=== PATIENT | female | born 1985 | race African-American/Black ===

== ENCOUNTER 2019-05-09 13:12 | Emergency (ER) | payer MEDICAID ==
[2019-05-09 13:49] VITALS: BP 128/68
[2019-05-09] MEDS ORDERED: ACETAMINOPHEN 500MG TABLET PO ONE (14:30)
[2019-05-09] MEDS ORDERED: DEXAMETHASONE 4MG TABLET PO ONE (14:30)
[2019-05-09] MEDS ORDERED: IPRATROPIUM/ALBUTEROL 0.5-3(2.5)MG/3ML NEB HHN ONE ×2 (14:30→16:00)
== END 2019-05-09 16:34 | disposition home or self-care (01) ==
LOC: ER 13:12
DX: J45.901 Unspecified asthma with (acute) exacerbation (principal); R50.9 Fever, unspecified; R05 Cough
CPT/HCPCS: 71045; 87804; 94640; 99284; J7610; J8540

== ENCOUNTER 2019-06-01 03:12 | Emergency (ER) | payer MEDICAID, MEDICARE ==
[~2019-06-01] VITALS: Ht 165.1 cm; Wt 68.0 kg
[2019-06-01] MEDS ORDERED: ONDANSETRON HCL 4MG/2ML INJ IV STA (03:45)
[2019-06-01] MEDS ORDERED: SODIUM CHLORIDE 0.9% 1,000 ML IV ONE (03:45)
[2019-06-01 04:18] LABS: BASOPHILS % 0.3 % (0.0-2.0); EOSINOPHILS % 0.2 % (0.0-5.0); HEMATOCRIT. 37.4 % (36.0-48.0); HEMOGLOBIN. 12.5 g/dL (12.0-16.0); LYMPHOCYTES % 16.9 % (20.0-50.0); MEAN CORPUSCULAR HEMOGLOBIN 30.2 pg (28.0-32.0); MEAN CORPUSCULAR VOLUME 90.7 fL (81.0-99.0); MEAN PLATELET VOLUME 8.8 fl (7.4-10.4); MONOCYTES % 5.9 % (2.0-8.0); NEUTROPHILS % 76.7 % (40.0-76.0); PLATELET 317 x1000/uL (130-400); RED BLOOD CELL COUNT 4.13 mill/uL (4.2-5.4); RED CELL DISTRIBUTION WIDTH 15.7 % (11.6-14.6)
[2019-06-01 04:20] LABS: CHLORIDE 109 mEq/L (98-107)
[2019-06-01 04:26] LABS: ETHANOL BLOOD 175 mg/dL
[2019-06-01 04:28] LABS: HCG SCREEN NEGATIVE
[2019-06-01] MEDS ORDERED: POTASSIUM CHLORIDE 20MEQ TABLET SR PO ONE (04:45)
[2019-06-01 04:53] LABS: CLARITY URINE CLEAR (CLEAR); COLOR URINE YELLOW (YELLOW); KETONES URINE NEGATIVE (NEGATIVE); LEUKOCYTE ESTERASE URINE TRACE (NEGATIVE); NITRITE URINE NEGATIVE (NEGATIVE); OCCULT BLOOD URINE NEGATIVE (NEGATIVE); PH URINE 5.5 (4.5-8.0); PROTEIN URINE NEGATIVE (NEGATIVE); SPECIFIC GRAVITY URINE 1.009 (1.005-1.030); UROBILINOGEN URINE 0.2 E.U./dL (0.2-1.0)
[2019-06-01 05:35] VITALS: BP 151/83
[2019-06-01 05:41] LABS: *AMPHETAMINES SCREEN URINE NEGATIVE (NEGATIVE); *BARBITURATES SCREEN URINE NEGATIVE (NEGATIVE); *BENZODIAZEPINES SCREEN URINE NEGATIVE (NEGATIVE); *COCAINE SCREEN URINE NEGATIVE (NEGATIVE); METHADONE URINE SCREEN NEGATIVE (NEGATIVE); OPIATES URINE SCREEN NEGATIVE (NEGATIVE)
[2019-06-01 05:42] LABS: CANNABINOID URINE SCREEN NEGATIVE (NEGATIVE); PHENCYCLIDINE URINE SCREEN NEGATIVE (NEGATIVE)
== END 2019-06-01 07:02 | disposition home or self-care (01) ==
LOC: ER 03:12
DX: F10.129 Alcohol abuse with intoxication, unspecified (principal); Y90.6 Blood alcohol level of 120-199 mg/100 ml
CPT/HCPCS: 36415; 71045; 80053; 80305; 80320; 80329; 81003; 83690; 84703; 85025; 96374; 99284; J2405; J7030; G0480

== ENCOUNTER 2019-11-19 14:04 | Emergency (ER) | payer MEDICARE, MEDICAID ==
[~2019-11-19] VITALS: Ht 167.6 cm; Wt 94.0 kg
[2019-11-19] MEDS ORDERED: ALBUTEROL 6.7GM HFA INHALER ORI ONE (14:30)
[2019-11-19] MEDS ORDERED: PREDNISONE 20MG TABLET PO ONE (15:00)
[2019-11-19 16:33] VITALS: BP 142/93
== END 2019-11-19 16:15 | disposition home or self-care (01) ==
LOC: ER 14:04
DX: U07.1 COVID-19 (principal); J45.901 Unspecified asthma with (acute) exacerbation
CPT/HCPCS: 71045; 81025; 93005; 94640; 99283; J7512

== ENCOUNTER 2020-06-24 13:44 | Emergency (ER) | payer MEDICARE, MEDICAID ==
[~2020-06-24] VITALS: Ht 170.2 cm; Wt 97.0 kg
[2020-06-24] MEDS ORDERED: ALBUTEROL (0.083%) 2.5MG/3ML NEB HHN STA (14:26)
[2020-06-24] MEDS ORDERED: IPRATROPIUM BROMIDE (0.02%) 0.5MG/2.5ML NEB HHN STA (14:26)
[2020-06-24] MEDS ORDERED: POLY10DR RIGHTEYE (14:27)
[2020-06-24] MEDS ORDERED: ALBU2.5V13 NEB (14:28)
[2020-06-24] MEDS ORDERED: ALBU6.7H11 INH (14:29)
[2020-06-24] MEDS ORDERED: DEXAMETHASONE 2MG TABLET PO ONE (14:30)
[2020-06-24 15:40] VITALS: BP 112/60
== END 2020-06-24 15:48 | disposition home or self-care (01) ==
LOC: ER 14:16
DX: J45.901 Unspecified asthma with (acute) exacerbation (principal); H10.31 Unspecified acute conjunctivitis, right eye; Z79.899 Other long term (current) drug therapy
CPT/HCPCS: 94640; 99283; J8540

== ENCOUNTER 2020-08-19 12:43 | Emergency (ER) | payer MEDICARE, MEDICAID ==
[~2020-08-19] VITALS: Ht 167.6 cm; Wt 91.0 kg
[~2020-08-19 12:43] MED LIST: ALBU2.5V13 NEB; ALBU6.7H11 INH; POLY10DR RIGHTEYE
[2020-08-19] MEDS ORDERED: KETOROLAC 60MG/2ML VIAL IM ONE (13:15)
[2020-08-19] MEDS ORDERED: IBUPROFEN 600MG TABLET PO ONE (13:45)
[2020-08-19] MEDS ORDERED: NAPR-681 MT (13:57)
[2020-08-19 14:33] VITALS: BP 133/84
== END 2020-08-19 14:44 | disposition home or self-care (01) ==
LOC: ER 12:43
DX: S93.402A Sprain of unspecified ligament of left ankle, initial encounter (principal); J45.909 Unspecified asthma, uncomplicated; Z79.899 Other long term (current) drug therapy; W18.39XA Other fall on same level, initial encounter; Y93.61 Activity, american tackle football; Y92.89 Other specified places as the place of occurrence of the external cause; Y99.8 Other external cause status
CPT/HCPCS: 29515; 73610; 73630; 81025; 99284; J1885

== ENCOUNTER 2021-01-01 13:20 | Inpatient (IN) | payer OTHER ==
[~2021-01-01] VITALS: Ht 167.6 cm; Wt 101.2 kg
[~2021-01-01 13:20] MED LIST changes: -ALBU6.7H11 INH; +ALBU6.7H15 INH; +NAPR-681 MT
[2021-01-01 18:57] LABS: BASOPHILS % 0.2 % (0.0-2.0); CHLORIDE 109 mEq/L (98-107); EOSINOPHILS % 0.7 % (0.0-5.0); HEMATOCRIT. 37.5 % (36.0-48.0); HEMOGLOBIN. 12.9 g/dL (12.0-16.0); LYMPHOCYTES % 26.7 % (20.0-50.0); MEAN CORPUSCULAR HEMOGLOBIN 31.6 pg (28.0-32.0); MEAN CORPUSCULAR VOLUME 91.9 fL (81.0-99.0); MEAN PLATELET VOLUME 8.4 fl (7.4-10.4); MONOCYTES % 5.8 % (2.0-8.0); NEUTROPHILS % 66.6 % (40.0-76.0); PLATELET 350 x1000/uL (130-400); RED BLOOD CELL COUNT 4.08 mill/uL (4.2-5.4); RED CELL DISTRIBUTION WIDTH 13.3 % (11.6-14.6)
[2021-01-01] MEDS ORDERED: CLINDAMYCIN 300 MG in DEXTROSE 5% WATER 50 ML IV ONE (21:15)
[2021-01-02] MEDS: ACETAMINOPHEN WITH CODEINE 300/30MG TABLET PO PRN ×2 (00:29→10:17)
[2021-01-02 09:00] VITALS: BP 120/71
[2021-01-02] MEDS ORDERED: ACETAMINOPHEN 325MG TABLET PO PRN (09:15)
[2021-01-02] MEDS ORDERED: DIPHENHYDRAMINE 50MG/ML VIAL IV PRN (09:15)
[2021-01-02] MEDS ORDERED: ONDANSETRON HCL 4MG/2ML INJ IV PRN ×2 (09:15→20:30)
[2021-01-02] MEDS ORDERED: MORPHINE SULFATE 2 MG/ML CPJ (NOT FOR IM USE) IV PRN (09:15)
[2021-01-02] MEDS ORDERED: CLONIDINE 0.1MG TABLET PO PRN (09:15)
[2021-01-02 10:30] VITALS: BP 120/71
[2021-01-02] MEDS ORDERED: MOME13HF INH (10:41)
[2021-01-02] MEDS ORDERED: MONT4GRA2 MT (10:41)
[2021-01-02] MEDS ORDERED: POTASSIUM CHLORIDE 20MEQ/PACKET PO SCH (10:45)
[2021-01-02 12:00] VITALS: BP 121/90
[2021-01-02] MEDS: CLINDAMYCIN 600MG PREMIX 50 ML IV SCH ×2 (15:41→17:49)
[2021-01-02 16:00] VITALS: BP 114/78
[2021-01-02 17:14] LABS: PARTIAL THROMBOPLASTIN TIME 25.1 sec (23.4-31.0); PROTHROMBIN TIME 10.3 sec (9.6-11.0)
[2021-01-02 17:16] LABS: HCG SCREEN NEGATIVE
[2021-01-02] MEDS ORDERED: SKIN ADHESIVE 0.7 GM EA TOP ONE (18:34)
[2021-01-02] MEDS ORDERED: LIDOCAINE HCL 1% 20ML VIAL (Pyxis) INJ ONE (18:34)
[2021-01-02] MEDS ORDERED: POLYMYXIN B SULFATE 500000 UNITS/VIAL ONE (18:35)
[2021-01-02] MEDS ORDERED: BUPIVACAINE HCL/PF 0.5% (5MG/ML) 10ML ONE (18:35)
[2021-01-02] MEDS ORDERED: HYDROMORPHONE HCL/PF 2MG/ML (OR) ONE (20:15)
[2021-01-02] MEDS ORDERED: DEXAMETHASONE 4MG/ML 1ML VIAL ONE (20:16)
[2021-01-02] MEDS ORDERED: GLYCOPYRROLATE 0.2 MG/ML 2ML VIAL ONE (20:20)
[2021-01-02] MEDS ORDERED: MEPERIDINE HCL/PF 25MG/ML CPJ IV PRN (20:30)
[2021-01-02] MEDS ORDERED: LABETALOL 5MG/ML SYR 20 MG/4 ML SYRINGE IV PRN (20:30)
[2021-01-02] MEDS ORDERED: HYDROMORPHONE HCL/PF 2MG/ML CPJ IV PRN (20:30)
[2021-01-02] MEDS ORDERED: KETOROLAC 30MG/ML VIAL IV NR (21:00)
[2021-01-02 21:38] VITALS: BP 123/77
[2021-01-02] MEDS ORDERED: NALOXONE HCL 0.4MG/ML VIAL IV PRN (22:30)
[2021-01-03] VITALS: BP 128/79
[2021-01-03] MEDS: ACETAMINOPHEN WITH CODEINE 300/30MG TABLET PO PRN ×3 (00:10→11:15)
[2021-01-03] MEDS: CLINDAMYCIN 600MG PREMIX 50 ML IV SCH ×2 (02:08→09:33)
[2021-01-03 04:00] VITALS: BP 105/60
[2021-01-03 08:00] VITALS: BP 105/62
[2021-01-03] MEDS: IPRATROPIUM/ALBUTEROL 0.5-3(2.5)MG/3ML NEB HHN PRN ×2 (08:12→12:05)
[2021-01-03 08:16] LABS: HEMATOCRIT. 38.7 % (36.0-48.0); HEMOGLOBIN. 12.9 g/dL (12.0-16.0); MEAN CORPUSCULAR HEMOGLOBIN 31.2 pg (28.0-32.0); MEAN CORPUSCULAR VOLUME 93.5 fL (81.0-99.0); MEAN PLATELET VOLUME 8.6 fl (7.4-10.4); PLATELET 363 x1000/uL (130-400); RED BLOOD CELL COUNT 4.14 mill/uL (4.2-5.4)
[2021-01-03 08:54] LABS: CHLORIDE 106 mEq/L (98-107)
[2021-01-03 09:02] LABS: LDL CHOLESTEROL 121 mg/dL (5-100)
[2021-01-03 09:03] LABS: HDL CHOLESTEROL 67 mg/dL (40-59)
[2021-01-03 12:00] VITALS: BP 105/62
[2021-01-03] MEDS ORDERED: CLIN300C12 MT (14:49)
[2021-01-03 16:00] VITALS: BP 112/69
[2021-01-03 17:41] LABS: PLATELET ESTIMATE NORMAL
[2021-01-03] MEDS ORDERED: T3 PO (18:14)
== END 2021-01-03 16:35 | disposition home or self-care (01) | DRG 585 ==
LOC: ER 13:20 → 6EST 21:43 → ENRESERV 01-02 07:19
PROVIDERS: ADMIT Internal Medicine; ATTEND Internal Medicine
PROC: 0H9T0ZZ Drainage of Right Breast, Open Approach (ICD-10-PCS; principal; 2021-01-02)
PROC: 0HBT0ZX Excision of Right Breast, Open Approach, Diagnostic (ICD-10-PCS; 2021-01-02)
DX: N61.1 Abscess of the breast and nipple (principal); J45.909 Unspecified asthma, uncomplicated; Z20.822 Contact with and (suspected) exposure to COVID-19; Z79.899 Other long term (current) drug therapy; Z80.3 Family history of malignant neoplasm of breast; Z79.51 Long term (current) use of inhaled steroids
CPT/HCPCS: 36415; 71045; 76641; 80053; 80061; 83880; 84443; 84484; 84703; 85025; 87070; 87075; 87426; 88304; 93005; 93970; 94640; 99285; J1100; J1170; J1885; J3490; J7040; J7060

== ENCOUNTER 2021-04-03 15:41 | Emergency (ER) | payer OTHER, MEDICAID ==
[~2021-04-03] VITALS: Ht 167.6 cm; Wt 100.0 kg
[~2021-04-03 15:41] MED LIST changes: +CLIN300C12 MT; +MOME13HF INH; +MONT4GRA2 MT; +T3 PO
[2021-04-03 16:22] VITALS: BP 143/89
[2021-04-03] MEDS ORDERED: ALBUTEROL (0.083%) 2.5MG/3ML NEB HHN ONE (19:00)
[2021-04-03] MEDS ORDERED: PREDNISONE 20MG TABLET PO ONE (19:00)
[2021-04-03] MEDS ORDERED: CLIN300C12 MT (23:02)
[2021-04-03] MEDS ORDERED: DOXY100C5 MT (23:03)
== END 2021-04-03 23:13 | disposition home or self-care (01) ==
LOC: ER 15:41
DX: N61.1 Abscess of the breast and nipple (principal); J45.901 Unspecified asthma with (acute) exacerbation; Z20.822 Contact with and (suspected) exposure to COVID-19; Z79.899 Other long term (current) drug therapy
CPT/HCPCS: 76641; 94640; 99284; C9803; J7512; U0003; U0005

== ENCOUNTER 2021-07-06 01:49 | Emergency (ER) | payer MEDICARE, MEDICAID ==
[~2021-07-06] VITALS: Ht 167.6 cm; Wt 101.0 kg
[~2021-07-06 01:49] MED LIST changes: +DOXY100C5 MT
[2021-07-06 03:19] LABS: BASOPHILS % 0.5 % (0.0-2.0); EOSINOPHILS % 1.4 % (0.0-5.0); HEMATOCRIT. 38.1 % (36.0-48.0); LYMPHOCYTES % 37.4 % (20.0-50.0); MEAN CORPUSCULAR HEMOGLOBIN 32.1 pg (28.0-32.0); MEAN PLATELET VOLUME 8.1 fl (7.4-10.4); MONOCYTES % 7.3 % (2.0-8.0); NEUTROPHILS % 53.4 % (40.0-76.0); PLATELET 309 x1000/uL (130-400); RED BLOOD CELL COUNT 4.05 mill/uL (4.2-5.4)
[2021-07-06 03:26] LABS: CHLORIDE 107 mEq/L (98-107)
[2021-07-06 09:30] VITALS: BP 129/80
== END 2021-07-06 11:00 | disposition home or self-care (01) ==
LOC: ER 01:49
DX: R07.89 Other chest pain (principal); J45.909 Unspecified asthma, uncomplicated
CPT/HCPCS: 36415; 71045; 80053; 83880; 84484; 85025; 93005; 99285

== ENCOUNTER 2022-01-26 15:20 | Emergency (ER) | payer MEDICARE, MEDICAID ==
[~2022-01-26] VITALS: Ht 167.6 cm; Wt 100.0 kg
[~2022-01-26 15:20] MED LIST changes: +CLIN-194 MT; -CLIN300C12 MT; -MOME13HF INH; +MOME13HF11 INH
[2022-01-26 15:35] VITALS: BP 139/88
== END 2022-01-26 21:12 | disposition home or self-care (01) ==
LOC: ER 15:20
DX: R05.9 Cough, unspecified (principal); Z20.822 Contact with and (suspected) exposure to COVID-19; J45.909 Unspecified asthma, uncomplicated; Z79.899 Other long term (current) drug therapy
CPT/HCPCS: 87426; 99283; C9803

== ENCOUNTER 2022-07-30 22:23 | Emergency (ER) | payer MEDICARE, MEDICAID ==
[~2022-07-30] VITALS: Ht 167.6 cm; Wt 106.9 kg
[2022-07-30 22:26] VITALS: BP 162/98
[2022-07-31] MEDS ORDERED: GUAI237L83 MT (02:14)
== END 2022-07-31 02:53 | disposition home or self-care (01) ==
LOC: ER 22:23
DX: J06.9 Acute upper respiratory infection, unspecified (principal); J45.909 Unspecified asthma, uncomplicated; Z20.822 Contact with and (suspected) exposure to COVID-19; Z79.899 Other long term (current) drug therapy; Z98.890 Other specified postprocedural states
CPT/HCPCS: 87426; 87804; 99283; C9803

== ENCOUNTER 2022-08-28 10:16 | Emergency (ER) | payer MEDICARE, MEDICAID ==
[~2022-08-28] VITALS: Ht 167.6 cm; Wt 99.8 kg
[~2022-08-28 10:16] MED LIST changes: +GUAI237L83 MT
[2022-08-28] MEDS ORDERED: IPRATROPIUM/ALBUTEROL 0.5-3(2.5)MG/3ML NEB HHN ONE (10:45)
[2022-08-28] MEDS ORDERED: ACETAMINOPHEN 325MG TABLET PO ONE (10:45)
[2022-08-28] MEDS ORDERED: IBUPROFEN 400MG TABLET PO ONE (10:45)
[2022-08-28] MEDS ORDERED: PREDNISONE 20MG TABLET PO ONE (10:45)
[2022-08-28] MEDS ORDERED: IBUP-2028 MT (12:10)
[2022-08-28] MEDS ORDERED: METH-653 MT (12:10)
[2022-08-28] MEDS ORDERED: TOPUD PO (12:10)
[2022-08-28] MEDS ORDERED: P50 MT (12:10)
[2022-08-28 13:07] VITALS: BP 142/68
== END 2022-08-28 13:08 | disposition home or self-care (01) ==
LOC: ER 10:16
DX: J45.901 Unspecified asthma with (acute) exacerbation (principal); Z79.899 Other long term (current) drug therapy; S13.4XXA Sprain of ligaments of cervical spine, initial encounter; V79.9XXA Bus occupant (driver) (passenger) injured in unspecified traffic accident, initial encounter; Y93.89 Activity, other specified; Y92.89 Other specified places as the place of occurrence of the external cause; Y99.8 Other external cause status
CPT/HCPCS: 71045; 94640; 99284; J7512

== ENCOUNTER 2022-12-09 11:48 | Emergency (ER) | payer MEDICARE, MEDICAID ==
[~2022-12-09] VITALS: Ht 167.6 cm; Wt 102.0 kg
[~2022-12-09 11:48] MED LIST changes: +AMOX1TAB16 MT; +IBUP-2028 MT; +METH-653 MT; +P50 MT; +TOPUD MT; +TOPUD PO
[2022-12-09 12:11] VITALS: BP 144/96; PULSE 86; RESP 16; TEMP 98.1; O2SAT 99
[2022-12-09] MEDS ORDERED: ONDANSETRON 4MG ODT PO ONE (12:30)
[2022-12-09] MEDS ORDERED: ACETAMINOPHEN 325MG TABLET PO ONE (12:30)
[2022-12-09] MEDS ORDERED: ONDA4TAB11 PO (13:44)
== END 2022-12-09 14:32 | disposition home or self-care (01) ==
LOC: ER 11:48
DX: B34.9 Viral infection, unspecified (principal); J45.909 Unspecified asthma, uncomplicated; R11.2 Nausea with vomiting, unspecified
CPT/HCPCS: 99283; 81025; Q0162

== ENCOUNTER 2023-05-17 10:51 | Emergency (ER) | payer MEDICARE, MEDICAID ==
[~2023-05-17] VITALS: Ht 172.7 cm; Wt 113.0 kg
[~2023-05-17 10:51] MED LIST changes: +ONDA4TAB11 PO
[2023-05-17 10:57] VITALS: O2SAT 100
[2023-05-17] MEDS ORDERED: DEXAMETHASONE 10 MG/ML VIAL PO ONE (12:30)
[2023-05-17] MEDS ORDERED: KETOROLAC 60MG/2ML VIAL IM ONE (12:30)
[2023-05-17] MEDS ORDERED: IBUP-2028 MT (14:23)
[2023-05-17] MEDS ORDERED: TOPUD MT (14:23)
[2023-05-17] MEDS ORDERED: TOPUD PO (14:40)
[2023-05-17] MEDS: KETOROLAC 60MG/2ML VIAL IM NR (17:15)
[2023-05-17] MEDS ORDERED: DEXAMETHASONE 10 MG/ML VIAL PO NR (17:15)
[2023-05-17] MEDS ORDERED: DEXAMETHASONE 2MG TABLET PO NR (17:15)
[2023-05-17] MEDS: DEXAMETHASONE 10 MG/ML VIAL PO NR (17:30)
[2023-05-17 17:58] VITALS: BP 137/86; PULSE 94; RESP 17; TEMP 99.1
== END 2023-05-17 18:03 | disposition home or self-care (01) ==
LOC: ER 10:51
DX: J10.1 Influenza due to other identified influenza virus with other respiratory manifestations (principal); J45.909 Unspecified asthma, uncomplicated; Z79.899 Other long term (current) drug therapy; Z20.822 Contact with and (suspected) exposure to COVID-19
CPT/HCPCS: 99283; 87426; 81025; 87430; 87070; 87804 ×2; 96372; J1100; J1885; J8540